=== PATIENT | male | born 1990 | race Caucasian/White ===

== ENCOUNTER 2018-02-05 01:38 | Emergency (ER) | payer SELFPAY ==
[~2018-02-05] VITALS: Ht 172.7 cm; Wt 95.5 kg
[2018-02-05 01:41] VITALS: TEMP 36.4; Ht 172.7 cm; Wt 95.5 kg
[2018-02-05] MEDS ORDERED: CEPHALEXIN 500MG HOME PACK 1 EA BTL PO ONE (02:00)
--- NOTE | 2018-02-05 03:17 | EMERGENCY ROOM VISIT NOTE ---
History First contact with patient: 01:44 Chief Complaint: INFECTION Stated Complaint: INFECTION ON ARM Nursing Triage Summary: pt reports he is recently back from [place] and has infection to right posterior forearm. states it started small but is now getting larger and has a red ring around it. small abscess noted to right forearm, no drainage, skin around red and warm to the touch. skin around outlined with a marker per FELICE Ferguson. pt alert and oriented x4. breathing WNL. History of Present Illness The patient is a 27 year old male who presents to the Emergency Room with complaints of right forearm infection for the past few days. Patient states he had a pimple and popped it a few days ago and now the area is red and swollen. Patient just returned from [place]. 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 He did not take any anti-malaria prophylaxis while there. Patient denies fevers, nausea, vomiting, numbness, tingling, cold symptoms, weakness. Tetanus is current. No other concerns per patient. No IV drug abuse Review of Systems An 10 system review of systems was completed with positives and pertinent negatives listed in the HPI. Past Medical/Surgical History Hernia repair, orthopedic surgery Social History Smoking Status: Never Smoker Smokeless Tobacco Use: No Drug Use: none Housing Status: lives with family Occupation Status: employed Current/Historical Medications No Active Prescriptions or Reported Meds Physical Exam Vital Signs Date Time Temp Pulse Resp B/P (MAP) Pulse Ox O2 Delivery O2 Flow Rate FiO2 02/05/18 02:22 50 18 110/77 97 Room Air 02/05/18 01:41 36.4 57 18 127/83 97 Room Air Physical Exam VITALS: Vitals are noted on the nurse's note and reviewed by myself. Vital signs stable. GENERAL: Pleasant male, in no acute distress, nondiaphoretic, well-developed well-nourished. SKIN: Capillary reflex less than 2 seconds. Right forearm with ruptured papule with surrounding erythema 3 cm x 2 cm without fluctuance or lymphangitis. The area was outlined with skin marker by nursing. HEENT: Normocephalic. PERRLA. EOMI. Nares patent. Mucous membranes moist. Neck is supple without nuchal rigidity. HEART: Regular rate and rhythm without murmurs gallops or rubs. LUNGS: Clear to auscultation bilaterally without wheezes, rales or rhonchi. No retractions or accessory muscle use. MUSCULOSKELETAL: No gross musculoskeletal defects. Right arm nontender to palpation. Radial pulses +2 equal and present. Sensation is intact. NEURO: Patient was alert and oriented to person place and time. Normal sensation to light and sharp touch. No focal neurological deficits. Medical Decision & Procedures ED Course Prior records reviewed and summarized as above. Triage Nursing notes reviewed. The patient's history was concerning for swelling and redness of the skin. Differential diagnosis: Etiologies such as cellulitis, abscess, MRSA infection, DVT, necrotizing fasciitis, dermatitis, drug eruption, as well as others were entertained.. Physical examination: The physical examination was consistent with cellulitis ER treatment provided: Keflex, skin marker On reassessment the patient felt better. Diagnostics interpreted by me: Imaging studies: US EXTREMITY: Edematous and hypervascular soft tissues in the region of interest in the right mid forearm. Approximately 4 x 2 x 6 mm fluid collection noted in the subcutaneous tissues, may represent abscess or hematoma/seroma. Radiologist: Fidencio Vera M.D. This appears to be cellulitis with possible very small abscess. Patient had no fluctuance on exam. He was started on antibiotics. He was advised to follow -up family care in a few days for reevaluation or here in the ER sooner for spreading infection, fevers, vomiting, worsening signs or symptoms or as needed. Patient had no lymphangitis. He was afebrile nontoxic. Stable vital signs. By the evaluation outlined above emergent etiologies such as necrotizing fasciitis, DVT, as well as others were deemed relatively unlikely. The pt informed about the findings as listed above. All questions were answered and pleased with the treatment. Return instructions were outlined and the patient was discharged in stable condition. Outpatient prescription management: Keflex Referral: The patient was referred back to primary care physician for follow-up in 2 to 3 days for a recheck of the current condition. The chart was completed utilizing [employer] voice recognition software. Grammatical errors, random word insertions, pronoun errors, and incomplete sentences are an occassional consequence of this system due to software limitations, ambient noise, and hardware issues. Any formal questions or concerns about the content, text, or information contained within the body of this dictation should be directly addressed to the physician sales assistant entertainment and media for clarification. Medical Decision as above Medication Reconcilliation Current Medication List: was personally reviewed by me Blood Pressure Screening Patient's blood pressure: Normal blood pressure Impression Primary Impression: Right arm cellulitis Departure Information Dispostion Home / Self-Care Condition GOOD Prescriptions No Active Prescriptions or Reported Meds Referrals No Doctor, Assigned (PCP) Patient Instructions [facility] Additional Instructions Cephalexin(Keflex) 500mg: Take one pill four times daily for 10 days for your skin infection. All antibiotics can cause diarrhea. If this occurs and you feel worse or it does not resolve in 1-2 days follow up with your doctor or return to the Emergency Department as this could be signs of serious underlying problems. Any medication can cause an allergic reaction, stop the pills immediately and return to the ER for rash, hives, breathing difficulties, or swelling. Do not squeeze or touch at the area. If the infection spreads out the black lines, then come to the ER for further evaluation and treatment. Ibuprofen(Motrin, Advil) may be used for fever or pain. Use 600mg every six hours as needed. Take with food. Avoid using more than 2400mg in a 24 hour period. Do not use 2400mg per day for more than three consecutive days without physician direction. Prolonged inappropriate use can lead to stomach upset or ulcers. (AND/OR) Acetaminophen(Tylenol) may be used for fever or pain. Use 1000mg every six hours as needed. Avoid using more than 4000mg in a 24 hour period. Warm compresses to the affected area 4 times daily for 15-20 minutes. Rest and drink plenty of fluids. Continue current medications. Return to the ER for severe pain, persistent fevers, spreading redness, or any worsening of your condition. Follow up with your primary physician within 2-3 days for a recheck of the current condition.
[2018-02-05] MEDS ORDERED: CEPH500C2 PO (03:18)
[2018-02-05 03:27] VITALS: BP 128/89; PULSE 68; O2SAT 97
--- NOTE | 2018-02-05 06:58 | DIAGNOSTIC IMAGING REPORT ---
R EXTREMITY NONVASCULAR LIMITED CLINICAL HISTORY: right forearm infx, ? abscess pain. Edema. TECHNIQUE: Ultrasound COMPARISON STUDY: None FINDINGS: At the area of clinically palpable edema and discomfort is evidence for subcutaneous edematous and somewhat hypervascular soft tissues. This is in the mid forearm region. A slightly complex 4 x 2 x 5 mm complex fluid collection is noted in subcutaneous tissues. This potentially represents a small hematoma versus abscess. IMPRESSION: Subcutaneous edematous and hypervascular change with a small localized complex fluid collection centrally. The above report was generated using voice recognition software. It may contain grammatical, syntax or spelling errors. Electronically signed by: Amado Haney M.D. 02/05/2018 6:57 AM Dictated Date/Time: 02/05/2018 6:54 AM
== END 2018-02-05 03:27 | disposition home or self-care (01) ==
LOC: C.EDB 01:38 → C.EDA 03:27
DX: L03.111 Cellulitis of right axilla (principal)